=== PATIENT | female | born 1965 | race Caucasian/White ===

== ENCOUNTER → 2017-01-05 | Day surgery (SDC) | payer BC, MEDICAID ==
[~2017-01-05] MED LIST: ACETAMINOPHEN500 M5 PO; ADVAIR 250-501 EACH IH; ADVAIR 2501 DISK W/1 INH; ALBUTEROL MININEB NEB; ALBUTEROL17 GM INH; CALCIUM + D 6001 TA1 PO; CALCIUM + VITAM1 TAB PO; CALCIUM PLUS VIT D PO; CELEXA20 MG PO; FANAPT1 EACH PO; FANAPT8 MG PO; HYDROXYZINE HCL50 MG PO; HYDROXYZINE PAM25 MG PO; IBUPROFEN800 MG PO; MOBIC15 MG PO; MUCINEX DM ER1 EACH PO; NAPROSYN-EC500 MG PO; NAPROSYN500 MG PO; NEURONTIN800 MG; NEURONTIN800 MG PO; OXYGEN; PRAZOSIN HCL2 MG PO; PRILOSEC40 MG PO; PROAIR HFA8.5 GM INH; SIMVASTATIN40 MG PO; TOPIRAMATE100 MG PO; TYLOX1 CAP 5/50 PO; VICODIN 5/1 TAB 5/50 PO; ZOCOR20 MG PO; [UNRECOGNIZED DRUG - OTHER]
--- NOTE | ~2017-01-05 | OR ---
Unit #: [id number] #: [id number] Patient: JENISE SUNSHINE [id number] [address] [address] [id number] O MR#: [id number] NAME: JENISE SUNSHINE ROOM: Date of Procedure: 01/05/2017 Admission Date: 01/05/2017 Surgeon: Oscar Lopez M.D. : 1965 Attending Physician: Oscar Lopez M.D. Primary Care Physician: Lilia Blue M.D. OPERATIVE REPORT PROCEDURES PERFORMED Colonoscopy with snare polypectomy, colonoscopy with hemoclip application, and submucosal injection. INDICATIONS FOR PROCEDURE A 51-year-old female with Hemoccult-positive stool, undergoing colonoscopy for evaluation. MEDICATIONS Monitored anesthesia. POSTOPERATIVE FINDINGS 1. 1.5 cm flat polyp, ascending colon, snared piecemeal. Two hemoclips were placed. The area was tattooed for future reference. 2. Three polyps in the transverse colon, 2 were small 6 mm, snared and sent for histopathology. Third one was a flat, was somewhat depressed in the middle, 1.5 cm. It was raised with saline pillow and then removed using the piecemeal snare polypectomy. 4 hemoclips were placed to close the wound. 3. Rest of the colon exam to cecum was normal. Prep was adequate. PLAN Repeat colonoscopy in 1 year. Follow up on the pathology report. DESCRIPTION OF PROCEDURE The patient was explained of the procedure, risks, and benefits along with the risks and benefits of anesthesia. She was brought to the endoscopy room. Propofol anesthesia was given. Rectal exam was done, which was normal. Colonoscope was lubricated, passed up the rectum, advanced under direct vision all the way to the cecum. Cecum was identified by ileocecal valve and appendiceal orifice. Multiple polyps were removed as described. I retroflexed in the rectum, small hemorrhoids seen. Gently, the scope was pulled out. She tolerated it well. Dictated by... Bradley Flores/sindhu TD: 01/06/2017 00:50 JOB #: [id number] Unit #: [id number] #: [id number] Patient: JENISE SUNSHINE OPERATIVE REPORT X Oscar Lopez MD PROCEDURE OPERATIVE NOTE
== END | disposition home or self-care (01) ==
LOC: COPS 09:15
DX: D12.2 Benign neoplasm of ascending colon (principal); D12.3 Benign neoplasm of transverse colon; J44.9 Chronic obstructive pulmonary disease, unspecified; F17.210 Nicotine dependence, cigarettes, uncomplicated; Z79.899 Other long term (current) drug therapy; Z90.49 Acquired absence of other specified parts of digestive tract; Z98.51 Tubal ligation status; Z98.84 Bariatric surgery status; Z98.890 Other specified postprocedural states
CPT/HCPCS: 88305; J0171; J2250

== ENCOUNTER → 2017-03-01 | Outpatient (CLI) | payer OTHER, MEDICAID ==
--- NOTE | ~2017-03-01 | BD1 ---
[facility] A Service of [facility] & [facility] RADIOLOGY TEXT RESULTS PATIENT: JENISE SUNSHINE LOCATION: [facility] : [birth year] UNIT #: [id number] AGE: [address]: JESSE RUSS SEX: F ORDER DR: [id number] [facility] [address] [place], [place] [address] [id number] O MR#: [id number] Acc #: [id number] NAME: JENISE SUNSHINE : 1965 SEX: F STUDY DATE/TIME: 03/01/2017 11:18 UNIT: [facility] ROOM: STUDY DESCRIPTION: BD Dexa Bone Dens 1+ Site Attending Physician: Nava Lopez Ordering Physician: Nava Lopez Primary Care Physician: Lilia Blue M.D. MEDICAL IMAGING REPORT This report is preliminary unless electronic signature is present EXAM DXA scan, 02/28/2017. HISTORY Status post menopause with no hormone replacement therapy. Osteopenia. Arthritis. Fracture of tibia and fibula, elbow, foot, and ribs in last 10 years. Smoking history for 35 years. Family history of osteoporosis in grandmother. FINDINGS Bone mineral density in the lumbar spine from L1 through L4 is 0.93 g/cm2, which is 1.1 standard deviations below the mean when compared to the young adult reference population, which is characteristic of osteopenia. This is 0.2 standard deviation below the mean when compared to the age-matched population. Compared with 12/18/2012, there has been an increase in bone mineral density in the lumbar spine of 13.5%. Bone mineral density in the left femoral neck is 0.667 g/cm2, which is 1.6 standard deviations below the mean when compared to the young adult reference population, which is characteristic of osteopenia. This is 0.8 standard deviation below the mean when compared to the age-matched population. Compared with 12/18/2012, there has been an increase in bone mineral density in the left hip of 7%. IMPRESSION Bone mineral density in the lumbar spine and the left hip characteristic of osteopenia. Compared with 12/18/2012, there has been an increase in bone mineral density in the lumbar spine and the left hip. Dictated by... [facility] A Service of [facility] & [facility] RADIOLOGY TEXT RESULTS PATIENT: JENISE SUNSHINE LOCATION: [facility] : [birth year] UNIT #: [id number] AGE: [address]: JESSE RUSS SEX: F ORDER DR: Abelino Hemphill M.D. THIS IS AN ELECTRONICALLY VERIFIED REPORT Abelino Hemphill M.D. at 03/02/2017 8:04 AM Eron TD: 03/01/2017 12:48 JOB #: [id number] MEDICAL IMAGING REPORT Page 1 of 1 COPY
== END | disposition home or self-care (01) ==
LOC: CWCC 11:02
DX: Z13.820 Encounter for screening for osteoporosis (principal); N95.9 Unspecified menopausal and perimenopausal disorder; M85.89 Other specified disorders of bone density and structure, multiple sites
CPT/HCPCS: 77080

== ENCOUNTER → 2017-03-15 | Outpatient (CLI) | payer OTHER, MEDICAID ==
--- NOTE | ~2017-03-15 | CT57 ---
[facility] A Service of [facility] / [facility] RADIOLOGY TEXT RESULTS PATIENT: JENISE SUNSHINE LOCATION: [facility] : [birth year] UNIT #: [id number] AGE: [address]: Felicia Vargas APRN SEX: F ORDER DR: [id number] [facility] [address] [place], [place] [address] [id number] O MR#: [id number] Acc #: [id number] NAME: JENISE SUNSHINE : 1965 SEX: F STUDY DATE/TIME: 03/15/2017 14:50 UNIT: [facility] ROOM: STUDY DESCRIPTION: CT Chest Wo Cont Attending Physician: Felicia Vargas A.P.R.N. Ordering Physician: Felicia Vargas A.P.R.N. Primary Care Physician: Lilia Blue M.D. MEDICAL IMAGING REPORT This report is preliminary unless electronic signature is present EXAM CT chest INDICATIONS Restrictive lung disease. Shortness of air for several years. COPD. TECHNIQUE CT of the thorax without contrast. High resolution axial images were obtained in the supine position during inspiration and expansion. Prone inspiration images were acquired. The exam was performed as a high resolution chest CT. This CT exam was performed with one or more of the following radiation dose reduction techniques: automatic exposure control, adjustment of mA and/or kV according to patient size, and iterative reconstruction. COMPARISON CT chest 11/09/2010 FINDINGS The lungs are clear. There is no focal consolidation. The central airways are patent. High resolution images of the lungs show no evidence of significant interstitial lung disease. There is no architectural distortion/honeycombing, ground-glass densities, bronchiectasis, or significant air trapping. Specifically, there is no evidence of a usual interstitial pneumonia. No enlarged mediastinal or hilar lymph nodes. The thoracic aorta is normal in caliber. Patient has a gastric band. 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 Negative CT scan of the chest. 2. No evidence of significant interstitial lung disease. Specifically, no evidence of a usual interstitial pneumonia. Dictated by... Nahum Garcia M.D. THIS IS AN ELECTRONICALLY VERIFIED REPORT Nahum Garcia M.D. at 03/16/2017 2:46 PM DEVON/rosalia TD: 03/16/2017 11:13 JOB #: [id number] MEDICAL IMAGING REPORT Page 1 of 1 COPY
== END | disposition home or self-care (01) ==
LOC: CCAT 14:34
DX: J98.4 Other disorders of lung (principal); J44.9 Chronic obstructive pulmonary disease, unspecified
CPT/HCPCS: 71250